=== PATIENT | female | born 1975 | race African-American/Black ===

== ENCOUNTER 2024-06-25 14:32 | Emergency (ER) | payer OTHER ==
[~2024-06-25] VITALS: Ht 170.2 cm; Wt 99.8 kg
[2024-06-25 15:22] VITALS: BP 154/105; TEMP 98.3; O2SAT 98
[2024-06-25] MEDS ORDERED: METHOCARBAMOL (500MG) 500 MG TABLET ONE (22:20)
[2024-06-25] MEDS ORDERED: KETOROLAC TROMETHAMINE INJ 30 MG/ML VIAL ONE (22:20)
[2024-06-25] MEDS ORDERED: ACETAMINOPHEN 325 MG TABLET ONE (22:20)
[2024-06-25] MEDS: METHOCARBAMOL (750MG) 750 MG TABLET PO SCH (22:23)
[2024-06-25] MEDS: KETOROLAC TROMETHAMINE INJ 30 MG/ML VIAL IM ONE (22:23)
[2024-06-25] MEDS: ACETAMINOPHEN 325 MG TABLET PO ONE (22:23)
[2024-06-26] MEDS ORDERED: ACET325C7 PO (00:02)
[2024-06-26] MEDS ORDERED: IBUP-1955 PO (00:02)
[2024-06-26] MEDS ORDERED: METH-649 PO (00:02)
[2024-06-26] MEDS ORDERED: LIDO30AD10 TP (00:02)
== END 2024-06-26 00:48 | disposition left against medical advice (07) ==
LOC: ER 14:44
DX: M54.50 Low back pain, unspecified (principal); M54.2 Cervicalgia; M79.601 Pain in right arm; Z60.2 Problems related to living alone; V43.52XA Car driver injured in collision with other type car in traffic accident, initial encounter; Y93.89 Activity, other specified; Y92.488 Other paved roadways as the place of occurrence of the external cause; Y99.8 Other external cause status
CPT/HCPCS: 99285; 72125; 96372; 72100; J1885